=== PATIENT | male | born 1965 | race Caucasian/White ===

== ENCOUNTER 2018-10-28 06:16 | Day surgery (SDC) | payer OTHER ==
[~2018-10-28] VITALS: Ht 167.6 cm; Wt 84.3 kg
[~2018-10-28 06:16] MED LIST: ATOR20TA38 PO
[2018-10-28 07:05] VITALS: Ht 167.6 cm; Wt 84.3 kg
[2018-10-28] MEDS ORDERED: PROPOFOL 40 ML ONE (07:08)
[2018-10-28] MEDS ORDERED: LIDOCAINE 100 MG SYRINGE ONE (07:08)
--- NOTE | 2018-10-28 07:20 | PREAC ---
Date/Time of Note Date/Time of Note DATE: 10/28/18 TIME: 07:20 Anesthesia Eval and Record Evaluation Time Pre-Procedure Interview DATE: 10/28/18 TIME: 07:20 Age 53 Sex male NPO: 8 hrs Preoperative diagnosis screening Planned procedure colonoscopy Past Medical History Past Medical History: Includes Cardio: Dyslipidemia GI: Obesity Surgery & Anesthesia Issues No known issue Meds Anticoagulation: No Beta Chrissy within 24 hr: No Reason Beta Chrissy not given: Pt. not on B-Chrissy Reported Medications Atorvastatin Calcium* (Atorvastatin Calcium*) 20 Mg Tablet, 20 MG PO QHS, #30 TAB 10/28/18 Meds reviewed: Yes Allergies Coded Allergies: No Known Allergy (Unverified , 10/28/18) Allergies Reviewed: Yes Labs/Studies Labs Reviewed: Other (NA) test: N/A Pre-procedure Exam Airway: Adequate mouth opening Mallampati: Mallampati II Teeth: Normal Lung: Normal Heart: Normal ASA Physical Status ASA physical status: 2 Emergency: None Planned Anesthetic General/MAC: MAC Pre-operative Attestations Prior to commencing anesthesia and surgery, the patient was re-evaluated, there was verification of: *The patient's identity *The results of appropriate recent lab work and preoperative vital signs *The above evaluation not changing prior to induction *Anesthetic plan, risk benefits, alternative and complications discussed with patient/family; questions answered; patient/family understands, accepts and wishes to proceed. TIMOTHY BALLARD Oct 28, 2018 07:20
[2018-10-28 07:23] VITALS: BP 109/65; PULSE 63; RESP 18
--- NOTE | 2018-10-28 08:17 | PAC ---
Date/Time of Note Date/Time of Note DATE: 10/28/18 TIME: 08:16 Post-Anesthesia Notes Post-Anesthesia Note Last documented vital signs Temp 98.6F BP 99/65 HR 70 RR 12 SpO2 100% Activity: WNL Respiratory function: WNL Cardiovascular function: WNL Mental status: Baseline Pain reasonably controlled: Yes Hydration appropriate: Yes Nausea/Vomiting absent: Yes TIMOTHY BALLARD Oct 28, 2018 08:17
[2018-10-28 08:46] VITALS: BP 122/73; RESP 20
== END 2018-10-28 11:24 | disposition home or self-care (01) ==
LOC: GIL 06:16
PROVIDERS: ATTEND Internal Medicine Gastroenterology
DX: Z12.11 Encounter for screening for malignant neoplasm of colon (principal); K64.8 Other hemorrhoids
CPT/HCPCS: 45378; J2001